=== PATIENT | female | born 1955 | race Caucasian/White ===

== ENCOUNTER → 2018-09-21 14:10 | Outpatient (CLI) | payer BC | END | disposition home or self-care (01) | LOC: D.LABREF 14:10 | DX: M17.11 Unilateral primary osteoarthritis, right knee (principal); Z11.8 Encounter for screening for other infectious and parasitic diseases ==

== ENCOUNTER 2018-10-19 11:57 | Inpatient (IN) | payer BC ==
[~2018-10-19] VITALS: Ht 162.6 cm; Wt 117.9 kg
[2018-10-24] MEDS ORDERED: GLUCOPHAGE1000 MG PO (12:02)
[2018-10-24] MEDS ORDERED: NEURONTIN800 MG PO (12:02)
[2018-10-24] MEDS ORDERED: LISINOPRIL5 MG PO (12:03)
[2018-10-24] MEDS ORDERED: NOVOLIN 70/30 110 ML SC ×2 (12:03)
[2018-10-24] MEDS ORDERED: LIPITOR20 MG PO (12:04)
[2018-10-24] MEDS ORDERED: ROBAXIN500 MG PO (12:04)
[2018-10-24] MEDS ORDERED: ALDACTONE25 MG PO (12:05)
[2018-10-24] MEDS ORDERED: FUROSEMIDE40 MG PO (12:05)
[2018-10-24] MEDS ORDERED: NOVOLOG100 UNIT/1 SC (12:06)
[2018-10-24 13:03] LABS: BASOPHILS 0.3 % (0-2); EOSINOPHILS 2.3 % (0-7); HEMATOCRIT 38.3 % (36.0-48.0); HEMOGLOBIN 12.4 g/dL (12-16); IMMATURE GRANULOCYTES 0.6 % (0-5); LYMPHOCYTES 40.5 % (15-50); MCH 28.7 pg (26.0-34.0); MCHC 32.4 g/dL (31.0-37.0); MCV 88.7 fL (80.0-100.0); MEAN PLATELET VOLUME 10.3 fL (7.4-10.4); MONOCYTES 3.8 % (2-11); NEUTROPHILS 52.5 % (40-80); PLATELET COUNT 293 10x3/uL (130-400); RBC 4.32 10x6/uL (4.00-5.40); RDW 13.5 % (11.5-14.5); WBC 14.9 10x3/uL (4.8-10.8)
[2018-10-24 13:07] LABS: APPEARANCE CLEAR (CLEAR); BILIRUBIN NEGATIVE (NEGATIVE); COLOR YELLOW (YELLOW); GLUCOSE 1000 mg/dL (NEGATIVE); KETONE NEGATIVE (NEGATIVE); NITRITE NEGATIVE (NEGATIVE); PROTEIN NEGATIVE (NEGATIVE); SPECIFIC GRAVITY 1.015 (1.005-1.020); UROBILINOGEN NORMAL (NORMAL)
[2018-10-24 13:10] LABS: ANION GAP 12.1 mmol/L (8-16); POTASSIUM - SERUM 4.1 mmol/L (3.5-5.1)
[2018-10-24 13:12] LABS: INR 0.95 (0.85-1.17); PROTIME 12.2 SECONDS (11.6-15.0)
[2018-10-24 16:07] LABS: EOSINOPHILS 1 % (0-7); LYMPHOCYTES 25 % (15-50); MONOCYTES 6 % (2-11); NEUTROPHILS 59 % (40-80)
[2018-10-24 16:09] LABS: HYPER SEGMENTED NEUTROPHILS OCC; PLATELET ESTIMATE NORMAL; SMUDGE CELLS 1+
[2018-10-24 16:10] LABS: HYPOCHROMASIA 2+
[2018-10-29 09:48] VITALS: BMI 45.6
--- NOTE | 2018-10-29 15:56 | OP ---
PATIENT NAME: EVGENY AMEZCUA MEDICAL RECORD: [id number] :59 LOCATION:D.MS Baker2212 ADMISSION DATE:10/29/18 SURGEON: SUE GARZON MD DATE OF OPERATION: 10/29/2018 PREOPERATIVE DIAGNOSIS: Degenerative arthritis of the right knee. POSTOPERATIVE DIAGNOSIS: Degenerative arthritis of the right knee. PROCEDURE: Right total knee arthroplasty. SURGEON: Sue Garzon MD SENIOR INFORMATION SECURITY ARCHITECT: MARKO Hills INTRAOPERATIVE COMPLICATIONS: None. SUMMARY OF PATHOLOGIC FINDINGS: The patient had severe osteoarthritis tricompartmentally. IMPLANTS USED: [place] Triathlon total knee arthroplasty system, press fit size #5, distal femur size 5, tibial component size #5 CS, 11-mm tibial bearing, and a size 31 x 9 mm patellar resurface - press fit. OPERATIVE SUMMARY IN DETAIL: After obtaining the appropriate preoperative orthopedic surgery consent as well as anesthetic consultation, evaluation, and clearance, the patient was brought to the operating room and placed on the operating table in the supine position. After adequate general laryngeal mask airway was administered, a tourniquet was placed about the proximal aspect of the right lower extremity. The right lower extremity was then prepped and draped in a routine sterile fashion. The leg was elevated, exsanguinated, and the tourniquet was inflated to 350 mmHg. Routine midline incision was taken down for paramedian arthrotomy. Patella was everted and distal femur was exposed. Soft tissue excision was done in usual fashion. An intramedullary guide hole was created for distal intramedullary guided cuts. Distal femur was cut. Then, the entire proximal tibia was exposed. Further meniscal excision was then followed by creation of an intramedullary guide hole for intramedullary guided cuts of the tibia. The tibia was cut and measurements were taken. Distal femoral chamfer cuts were made and osteophytes were removed. Trials corresponding to the above-mentioned numbers were put into place, taken through range of motion, and found to be stable in all planes. Final distal femoral and proximal tibial preparations were followed by excision of the arthritic surface of the patella. The patella was then prepared for final press fit patellar resurfacing. All debris was then irrigated using pulsatile lavage senior technical writer. Bone ends were then exposed and dried. Final components were then put into place in a press fit method. Having completed this, the knee was taken through range of motion. Slight lateral patellar subluxation led to a lateral release. Lastly, a gram of vancomycin, a gram of tobramycin, and a gram of TXA were placed into the knee. Paramedian arthrotomy was then closed by Maurilio Emerson using #2 Ethibond. This was then followed by #1 Vicryl, 2-0 Vicryl, and skin verna; all done by Maurilio Emerson. Sterile dressings were applied. Tourniquet was deflated. The patient was awakened and taken to the recovery room in stable condition. All final needle and sponge counts were correct. TRANSINT:[id number] Voice Confirmation ID: [id number] DOCUMENT ID: [id number] OPERATIVE REPORT [id number] EVGENY AMEZCUA MD, SUE REEDER at 1556 CC: [id number] DICTATION DATE: 10/29/18 1431 TAX ADJUSTER: 10/29/18 1552 ADM IN [place] [id number] [place] [id number]
[2018-10-29 16:25] VITALS: BP 100/65; BMI 44.7
--- NOTE | 2018-10-29 16:36 | NUR ---
PT ADMITTED TO RM 2212 FROM RECOVERY. ALERT AND ORIENTED. NO ACUTE DISTRESS NOTED. RATES PAIN 4/10 AT THIS TIME TO RIGHT KNEE. DRESSING TO RIGHT KNEE C/D/I, WITH AYLIN BANDAGE INTACT. IV TO LEFT FOREARM WITH NS @ 100 ML/HR INFUSING VIA PUMP. SITE WITHOUT REDNESS OR EDEMA. ORIENTED TO CL AND BED CONTROLS. DENIES FURTHER NEEDS AT THIS TIME. CL WITHIN REACH. ENCOURAGED TO CALL WITH NEEDS. WILL CONTINUE TO MONITOR.
[2018-10-29 20:00] VITALS: BP 95/54
--- NOTE | 2018-10-29 20:00 | NUR ---
ALERT RESTING IN BED CPM IN USE TO R LEG REPORTS STARTING TO FEEL PAIN AGAIN REQUESTING PAIN MEDS SOON DUE, REPORTS STILL FEELING NUMBNESS TO FOOT AND LOWER LEG CALL LIGHT IN REACH
--- NOTE | 2018-10-29 21:13 | NUR ---
DILAUDID ADVERTISING PRODUCTION MANAGER STARTED ORDERED FOR PAIN CONTROL
[2018-10-30 00:12] VITALS: BP 101/50
[2018-10-30 04:00] VITALS: BP 103/59
[2018-10-30 04:41] LABS: HEMATOCRIT 31.7 % (36.0-48.0); MCH 27.9 pg (26.0-34.0); MCHC 31.5 g/dL (31.0-37.0); MCV 88.3 fL (80.0-100.0); MEAN PLATELET VOLUME 9.9 fL (7.4-10.4); RBC 3.59 10x6/uL (4.00-5.40); RDW 13.8 % (11.5-14.5); WBC 12.5 10x3/uL (4.8-10.8)
--- NOTE | 2018-10-30 07:15 | NUR ---
PT LYING IN BED WITH FAMILY AT BEDSIDE. NO ACUTE DISTRESS NOTED AT THIS TIME. REPORTS PAIN 4/10, WATER CHASER INTACT. IV TO LEFT FOREARM WITH 1/2 NS @ 100ML/HR INFUSING VIA PUMP. SITE WITHOUT REDNESS OR EDEMA. DRESSING C/D/I TO RIGHT KNEE. CPM IN PLACE AND OPERATING. PT DENIES FURTHER NEEDS AT THIS TIME. CL WITHIN REACH. ENCOURAGED TO CALL WITH NEEDS. CONTINUE POC
--- NOTE | 2018-10-30 09:10 | NUR ---
PHYSICAL THERAPY ASSISTING PT TO BEDSIDE CHAIR. PT CANDIDO WELL. NO DISTRESS NOTED. CL WITHIN REACH. WILL CONTINUE TO MONITOR.
[2018-10-30 09:15] VITALS: BP 115/67
[2018-10-30 10:14] VITALS: Ht 162.6 cm; Wt 117.9 kg
--- NOTE | 2018-10-30 11:30 | NUR ---
PT REMAINS UP IN CHAIR AT BEDSIDE, NO ACUTE DISTRESS NOTED. DENIES FURTHER NEEDS AT THIS TIME. CL WITHIN REACH. WILL CONTINUE TO MONITOR.
--- NOTE | 2018-10-30 13:15 | NUR ---
PHYSICAL THERAPY PRESENT TO ASSIST PT BACK TO BED. PT CANDIDO WELL. WILL CONTINUE TO MONITOR.
[2018-10-30 20:00] VITALS: BP 130/64
--- NOTE | 2018-10-30 20:00 | NUR ---
PT REMOVED FROM CPM PER PT REQUEST. C/O SEVERE PAIN TO RIGHT KNEE. DRESSING IS CLEAN/DRY/INTACT. DISTAL PULSES PALPABLE. PT REPORTED PUPPY TRAINER IS NOT CONTROLING PAIN. SUGGESTED PO PAIN CONTROL. PT AGREED. PUPPY TRAINER REMOVED, PT SALINE-LOCKED. ICE PACK APPLIED TO RIGHT KNEE. FSBS 223. TEMPERATURE IS 100.5F. 1 LAYER OF BLANKET SHE, COOL RAG APPLIED TO FOREHEAD, AND PT ENCOURAGED TO INCREASE FLUID INTAKE. ICEWATER BROUGHT PER REQUEST. WILL CONTINUE TO MONITOR.
--- NOTE | 2018-10-30 21:20 | NUR ---
TEMP IS 100.2 AXILLARY. CONTINUED COOLING AND FLUID INTAKE.
--- NOTE | 2018-10-30 22:30 | NUR ---
TEMP IS 100.0 AXILLARY, WILL CONTINUE TO MONITOR.
--- NOTE | 2018-10-30 23:37 | NUR ---
PT CHANGED INTO FLANNEL NIGHT GOWN, RE-COVERED SELF IN BLANKETS, ASLEEP, BUT EASILY AROUSED BY GENTLE TOUCH OF SHOULDER. TEMP IS 100.1. REMOVE COVER, COOL RAG, INCENT. SPIROMETER GIVEN AND INSTRUCTED ON USE. WILL CONTINUE TO MONITOR.
[2018-10-31] VITALS: BP 143/77
--- NOTE | 2018-10-31 01:00 | NUR ---
PT LYING IN BED RESTING, NO SIGNS OF DISTRESS. AGREE W/ CONCESSION ATTENDANT ASSESSMENT. CL IN REACH, WILL CONTINUE TO MONITOR
[2018-10-31 04:00] VITALS: BP 134/67
[2018-10-31 04:57] LABS: HEMATOCRIT 30.1 % (36.0-48.0); HEMOGLOBIN 9.5 g/dL (12-16); MCHC 31.6 g/dL (31.0-37.0); MCV 88.8 fL (80.0-100.0); MEAN PLATELET VOLUME 10.2 fL (7.4-10.4); RBC 3.39 10x6/uL (4.00-5.40); RDW 13.9 % (11.5-14.5); WBC 13.8 10x3/uL (4.8-10.8)
[2018-10-31 10:25] VITALS: BP 129/59
--- NOTE | 2018-10-31 12:15 | MORECARE ---
CASE MANAGEMENT DISCHARGE SUMMARY PATIENT: EVGENY AMEZCUA UNIT: [id number] ADM DATE: 10/29/18 AGE: 63 : 59 SEX: F ROOM/BED: D.2212 AUTHOR: JESSICA,DOC PHYSICIAN: REFERRING PHYSICIAN: SUE GARZON MD DATE OF SERVICE: 10/31/18 Discharge Plan Patient Name: EVGENY AMEZCUA Facility: [facility]:[place] : 1955 Planned Disposition: Home with Home Health Anticipated Discharge Date: Discharge Date: Expected LOS: Initial Reviewer: [email or web address] Initial Review Date: 10/29/2018 Generated: 10/31/18 1:15 pm Comments DCP- Discharge Planning Updated by [email or web address]: Pat Barajas on 10/31/18 11:[address] Patient Name: EVGENY AMEZCUA Admission Status: Elective Accout number: [id number] Admission Date: 10-29-2018 : 1955 Admission Diagnosis: Attending: SUE GARZON Current LOS: 2 Anticipated DC Date: Planned Disposition: Home with Home Health Primary Insurance: [employer] Discharge Planning Comments: CM met with patient to assess discharge planning needs. Patient stated that she lives independent at home where she plans to return at discharge. Her sister will be the one to take her home and will stay with her to help out for a little bit. After her sister leaves, the patient stated that she has friends lined up to come help. She has a cpm, walker and BSC. She does not have transportation to OP PT so she is requesting home health. LISBETH with (1) [facility] (2) [facility]. I called Chayo at [facility] and sent facesheet to see if they could accept patient. CM will continue to follow and assist with DC planning needs Auto Hauler: Pat Barajas DCPIA - Discharge Planning Initial Assessment Updated by [email or web address]: Pat Barajas on 10/31/18 12:11 pm * Is the patient Alert and Oriented? Yes * How many steps to enter\exit or inside your home? * PCP ALISA * Pharmacy [facility] * Preadmission Environment Home with Family * ADLs Independent * Equipment Elevated Toliet Seat Rolling Walker * Other Equipment CPM * List name and contact numbers for known caregivers / representatives who currently or will assist patient after discharge: BERNARDINO AMEZCUA [phone] * Verbal permission to speak to the caregivers and representatives has been obtained from the patient. Yes * Community resources currently utilized None * Additional services required to return to the preadmission environment? Yes * Can the patient safely return to the preadmission environment? Yes * Has this patient been hospitalized within the prior 30 days at any hospital? No External Providers External Provider: [employer] Next Contact Date: Service Request Date: Service Type: Resolution: Reviewer: Comments: Patient Name: EVGENY AMEZCUA Page [id number] at 1215 All edits/amendments must be made on the electronic document DICTATION DATE: 10/31/18 1215 TRACK MAINTAINER: CHRISSIE 10/31/18 1215 RPT#: [id number] DC DATE: STATUS: ADM IN [facility] [address] [place] [address] END OF REPORT
[2018-10-31 16:40] VITALS: BP 104/53
--- NOTE | 2018-10-31 19:00 | NUR ---
PT IN BED IN LOW FOWLERS POSITION. ALERT AND ORIENTED X4. VITAL SIGNS STABLE AND AFEBRILE. NO VISUAL CUES OF DISTRESS NOTED. DENIES ANY OTHER NEEDS AT THIS TIME. BED LOW, SIDE RAILS UP X2. CALL LIGHT IN REACH. WILL CONTINUE TO MONITOR.
[2018-10-31 21:07] VITALS: BP 93/43
[2018-11-01 04:39] VITALS: BP 106/67
[2018-11-01] MEDS ORDERED: ELIQUIS2.5 MG PO (07:50)
[2018-11-01] MEDS ORDERED: PERCOCET 10-321 EAC1 PO (07:50)
--- NOTE | 2018-11-01 09:24 | MORECARE ---
CASE MANAGEMENT DISCHARGE SUMMARY PATIENT: EVGENY AMEZCUA UNIT: [id number] ADM DATE: 10/29/18 AGE: 63 : 59 SEX: F ROOM/BED: D.2212 AUTHOR: JESSICA,DOC PHYSICIAN: REFERRING PHYSICIAN: SUE GARZON MD DATE OF SERVICE: 11/01/18 Discharge Plan Patient Name: EVGENY AMEZCUA Facility: [facility]:[place] : 1955 Planned Disposition: Home with Home Health Anticipated Discharge Date: Discharge Date: Expected LOS: Initial Reviewer: [email or web address] Initial Review Date: 10/29/2018 Generated: 11/01/18 10:24 am Comments DCP- Discharge Planning Updated by [email or web address]: Pat Barajas on 11/01/18 8:[address] Patient will be discharging home today. Chayo with [facility] stated that they would accept patient and start of care will begin tomorrow. Patient has all DME needed. CM to follow as needed DCP- Discharge Planning Updated by [id number]: Pat Barajas on 10/31/18 11:[address] Patient Name: EVGENY AMEZCUA Admission Status: Elective Accout number: [id number] Admission Date: 10-29-2018 : 1955 Admission Diagnosis: Attending: SUE GARZON Current LOS: 2 Anticipated DC Date: Planned Disposition: Home with Home Health Primary Insurance: [employer] [facility] [place]charge Planning Comments: CM met with patient to assess discharge planning needs. Patient stated that she lives independent at home where she plans to return at discharge. Her sister will be the one to take her home and will stay with her to help out for a little bit. After her sister leaves, the patient stated that she has friends lined up to come help. She has a cpm, walker and BSC. She does not have transportation to OP PT so she is requesting home health. LISBETH with (1) [facility] (2) [facility]. I called Chayo at [facility] and sent facesheet to see if they could accept patient. CM will continue to follow and assist with DC planning needs Rat Poisoner: Pat Barajas DCPIA - Discharge Planning Initial Assessment Updated by [email or web address]: Pat Barajas on 10/31/18 12:11 pm * Is the patient Alert and Oriented? Yes * How many steps to enter\exit or inside your home? * PCP ALISA * Pharmacy [facility] [place] * Preadmission Environment Home with Family * ADLs Independent * Equipment Elevated Toliet Seat Rolling Walker * Other Equipment CPM * List name and contact numbers for known caregivers / representatives who currently or will assist patient after discharge: BERNARDINO AMEZCUA [phone] * Verbal permission to speak to the caregivers and representatives has been obtained from the patient. Yes * Community resources currently utilized None * Additional services required to return to the preadmission environment? Yes * Can the patient safely return to the preadmission environment? Yes * Has this patient been hospitalized within the prior 30 days at any hospital? No Last DP export: 10/31/18 11:15 a Patient Name: EVGENY AMEZCUA Page [id number] at 0924 All edits/amendments must be made on the electronic document DICTATION DATE: 11/01/18922 SHELTER SUPERVISOR: CHRISSIE 11/01/18922 RPT#: [id number] DC DATE: STATUS: ADM IN [facility] [address] [place] [address] END OF REPORT
--- NOTE | 2018-11-02 14:49 | MORECARE ---
CASE MANAGEMENT DISCHARGE SUMMARY PATIENT: EVGENY AMEZCUA UNIT: [id number] ADM DATE: 10/29/18 AGE: 63 : 59 SEX: F ROOM/BED: D.2212 AUTHOR: JESSICA,DOC PHYSICIAN: REFERRING PHYSICIAN: SUE GARZON MD DATE OF SERVICE: 11/02/18 Discharge Plan Patient Name: EVGENY AMEZCUA Facility: [facility]:[place] : 1955 Planned Disposition: Home with Home Health Anticipated Discharge Date: Discharge Date: 11/01/2018 Expected LOS: 0 Initial Reviewer: [email or web address] Initial Review Date: 10/29/2018 Generated: 11/02/18 3:49 pm Comments DCP- Discharge Planning Updated by [email or web address]: Pat Barajas on 11/01/18 8:[address] Patient will be discharging home today. Chayo with [facility] stated that they would accept patient and start of care will begin tomorrow. Patient has all DME needed. CM to follow as needed DCP- Discharge Planning Updated by [id number]: Pat Barajas on 10/31/18 11:[address] Patient Name: EVGENY AMEZCUA Admission Status: Elective Accout number: [id number] Admission Date: 10-29-2018 : 1955 Admission Diagnosis: Attending: SUE GARZON Current LOS: 2 Anticipated DC Date: Planned Disposition: Home with Home Health Primary Insurance: I Had Cancer [facility] Discharge Planning Comments: CM met with patient to assess discharge planning needs. Patient stated that she lives independent at home where she plans to return at discharge. Her sister will be the one to take her home and will stay with her to help out for a little bit. After her sister leaves, the patient stated that she has friends lined up to come help. She has a cpm, walker and BSC. She does not have transportation to OP PT so she is requesting home health. LISBETH with (1) [facility] (2) [facility]. I called Chayo at [facility] and sent facesheet to see if they could accept patient. CM will continue to follow and assist with DC planning needs Legal Aid: Pat Barajas DCPIA - Discharge Planning Initial Assessment Updated by [email or web address]: Pat Barajas on 10/31/18 12:11 pm * Is the patient Alert and Oriented? Yes * How many steps to enter\exit or inside your home? * PCP ALISA * Pharmacy [facility] [place] * Preadmission Environment Home with Family * ADLs Independent * Equipment Elevated Toliet Seat Rolling Walker * Other Equipment CPM * List name and contact numbers for known caregivers / representatives who currently or will assist patient after discharge: BERNARDINO AMEZCUA [phone] * Verbal permission to speak to the caregivers and representatives has been obtained from the patient. Yes * Community resources currently utilized None * Additional services required to return to the preadmission environment? Yes * Can the patient safely return to the preadmission environment? Yes * Has this patient been hospitalized within the prior 30 days at any hospital? No Last DP export: 11/01/18 8:24 a Patient Name: EVGENY AMEZCUA Page [id number] at 1449 All edits/amendments must be made on the electronic document DICTATION DATE: 11/02/188 FOREIGN BANKNOTE TELLER: CHRISSIE 11/02/188 RPT#: [id number] DC DATE:11/01/18 STATUS: DIS IN [facility] [address] [place] [address] END OF REPORT
== END 2018-11-01 11:37 | disposition home health service (06) | DRG 470 ==
LOC: D.MS 10-29 09:25 → D.SDCHOLD 10-29 09:25 → D.MS 10-29 15:25
PROVIDERS: ADMIT Orthopaedic Surgery
PROC: 0SRC0JZ Replacement of Right Knee Joint with Synthetic Substitute, Open Approach (ICD-10-PCS; principal; 2018-10-29 12:00)
DX: M17.11 Unilateral primary osteoarthritis, right knee (principal); E11.9 Type 2 diabetes mellitus without complications; I10 Essential (primary) hypertension

== ENCOUNTER → 2018-10-24 17:17 | Outpatient (CLI) | payer BC ==
[~2018-10-24 17:17] MED LIST: ALDACTONE25 MG PO; ELIQUIS2.5 MG PO; FUROSEMIDE40 MG PO; GLUCOPHAGE1000 MG PO; LIPITOR20 MG PO; LISINOPRIL5 MG PO; NEURONTIN800 MG PO; NOVOLIN 70/30 110 ML SC; NOVOLOG100 UNIT/1 SC; PERCOCET 10-321 EAC1 PO; ROBAXIN500 MG PO
== END | disposition home or self-care (01) ==
LOC: D.LABREF 17:17
DX: Z00.00 Encounter for general adult medical examination without abnormal findings (principal)

== ENCOUNTER 2018-11-23 10:26 | Inpatient (IN) | payer MEDICAID ==
[~2018-11-23] VITALS: Ht 162.6 cm; Wt 114.5 kg
--- NOTE | ~2018-11-23 | OP ---
PATIENT NAME: EVGENY AMEZCUA MEDICAL RECORD: [id number] :[birth year] LOCATION:D.MS Baker2210 ADMISSION DATE:04/22/19 SURGEON: SUE GARZON MD DATE OF OPERATION: 04/22/2019 PREOPERATIVE DIAGNOSIS: Degenerative arthritis of left knee, severe. POSTOPERATIVE DIAGNOSIS: Degenerative arthritis of left knee, severe. PROCEDURE: Left total knee arthroplasty. SURGEON: Sue Garzon MD BREWERY PUMPER: MARKO Hills INTRAOPERATIVE COMPLICATIONS: None. SUMMARY OF PATHOLOGIC FINDINGS: The patient was indeed found to have severe degenerative arthritis with a substantial varus deformity. IMPLANTS USED: [place] Triathlon total knee arthroplasty component, size 3 tibial baseplate, 4 distal femoral component, size 3 x 16 tibial bearing insert - CS X3, and a 9 x 31 mm symmetric patella. Note, all are press fit. OPERATIVE SUMMARY IN DETAIL: After obtaining the appropriate preoperative orthopedic surgery consent as well as anesthetic consultation, evaluation, and clearance, the patient was brought to the operating room and placed on the operating table in supine position. After adequate general laryngeal mask was administered, tourniquet was placed about the proximal aspect of the left lower extremity. The left lower extremity was then prepped and draped in routine sterile fashion. The leg was elevated, exsanguinated, and the tourniquet was inflated to 350 mmHg. At this point, the appropriate preoperative time-out was taken including patient identifiers as well as medications and allergies. It was agreed upon by all in the operative suite. Midline incision was then made over the left knee and taken down for paramedian arthrotomy. Patella was everted. Soft tissue excision was done in the usual fashion. Distal femoral intramedullary guide hole was created. Distal femoral cut was made. This was followed by complete exposure of the proximal tibia with further soft tissue resection followed by creating an intramedullary guide hole for proximal tibial cutting. Proximal tibia was cut. Measurements were taken. Distal chamfer cuts were made on the distal femur. Implants corresponding to the above-mentioned implants were put into place, taken through range of motion, and found to be stable in all planes. Final distal femoral preparations and proximal tibial preparations were then followed by excising the arthritic aspect of the patella. Patella was prepared for final press fit. Wound was irrigated to remove all debris. Final components were press fit into place. Knee was taken through range of motion and found to be stable in all planes. At this point, a gram of vancomycin and a gram of tobramycin were placed in the knee. The arthrotomy was then closed with #2 Ethibond by Maurilio Emerson followed by #1 Vicryl, 2-0 Vicryl, and skin verna. Sterile dressings were applied. The patient was awakened and taken to recovery room in stable condition. All final needle and sponge counts were correct. TRANSINT:[id number] Voice Confirmation ID: [id number] DOCUMENT ID: [id number] OPERATIVE REPORT [id number] EVGENY AMEZCUA MD, SUE REEDER CC: [id number] DICTATION DATE: 04/24/19 1459 GAS STATION CLERK: 04/24/19 1711 ADM IN [place] [id number] [place] [address]
[2019-04-17] MEDS ORDERED: ELAVIL25 MG (12:43)
[2019-04-17] MEDS ORDERED: ELAVIL25 MG PO (12:43)
[2019-04-17] MEDS ORDERED: GLUCOPHAGE1000 MG PO (12:46)
[2019-04-17] MEDS ORDERED: COREG6.25 MG (12:46)
[2019-04-17] MEDS ORDERED: NOVOLIN 70/30 110 ML ×2 (12:48→12:50)
[2019-04-17] MEDS ORDERED: NOVOLIN 70/30 110 ML SQ (12:52)
[2019-04-17 13:40] LABS: BASOPHILS 0.2 % (0-2); EOSINOPHILS 1.5 % (0-7); HEMATOCRIT 35.5 % (36.0-48.0); HEMOGLOBIN 11.5 g/dL (12-16); IMMATURE GRANULOCYTES 0.5 % (0-5); LYMPHOCYTES 33.3 % (15-50); MCH 28.3 pg (26.0-34.0); MCHC 32.4 g/dL (31.0-37.0); MCV 87.4 fL (80.0-100.0); MONOCYTES 4.4 % (2-11); NEUTROPHILS 60.1 % (40-80); RBC 4.06 10x6/uL (4.00-5.40); RDW 14.4 % (11.5-14.5); WBC 12.9 10x3/uL (4.8-10.8)
[2019-04-17 13:44] LABS: PLATELET COUNT 299 10x3/uL (130-400)
[2019-04-17 13:51] LABS: ANION GAP 13.1 mmol/L (8-16); CALCIUM 9.1 mg/dL (8.5-10.1); CARBON DIOXIDE 26.7 mmol/L (21.0-32.0); CREATININE - SERUM 0.9 mg/dL (0.6-1.3); POTASSIUM - SERUM 3.8 mmol/L (3.5-5.1)
[2019-04-17 13:54] LABS: APTT 32.2 SECONDS (22.8-39.4)
[2019-04-17 13:58] LABS: INR 1.04 (0.85-1.17); PROTIME 13.1 SECONDS (11.6-15.0)
[2019-04-17 15:55] LABS: APPEARANCE CLEAR (CLEAR); BILIRUBIN NEGATIVE (NEGATIVE); COLOR YELLOW (YELLOW); GLUCOSE 1000 mg/dL (NEGATIVE); KETONE NEGATIVE (NEGATIVE); NITRITE NEGATIVE (NEGATIVE); PROTEIN NEGATIVE (NEGATIVE); SPECIFIC GRAVITY 1.025 (1.005-1.020); UROBILINOGEN NORMAL (NORMAL)
[2019-04-22] VITALS (7 sets, daily range): BP systolic 102–133; BP diastolic 53–87; Ht 162.6 cm; Wt 114.5 kg
--- NOTE | 2019-04-22 13:16 | NUR ---
PLASMA BLADE USED PAD IS ON RIGHT FLANK LOT# [id number] DATE:10/03/20
--- NOTE | 2019-04-22 16:13 | NUR ---
PATIENT RECIEVED FROM PACU FOLLOWING LEFT TOTAL KNEE REPLACEMENT. DRESSING C/D/I. PATIENT REPORTS PAIN OF 8 TO KNEE WITH PERCOCET GIVEN. ORIENTED PATIENT TO ROOM WITH CALL LIGHT IN REACH
--- NOTE | 2019-04-22 19:35 | NUR ---
LYING IN BED TALKING TO FAMILY. CPM HAS NOT BEEN ON OFFGOING STAFF REPORTED THAT PT DIDNT WANT IT ON WHILE FAMILY WAS VISITING. INFORMED PT THAT CPM WOULD BE PLACED ON HER SHORTLY. DENIES PAIN. STATES BLOCK IS STILL WORKING. ALERT AND ORIENTED BUT CONFUSED AT TIMES POSSIBLY FROM ANESTHESIA. IRRITABLE WITH STAFF. DRSG NOTED TO LT KNEE WITH AYLIN WRAP. 1+ EDEMA NOTED TO LLE. 1/2 NS @ 100 ML/HR INFUSING IN LT HAND WITHOUT DIFF. BED ALARM IN USE. SR ELEVATED X2. CL IN REACH.
--- NOTE | 2019-04-22 21:50 | NUR ---
MEDICATED WITH [facility]CO FOR C/O PAIN IN KNEE RATING 8. WANTS STAFF TO TAKE HER OFF THE CPM. STATES "I'M ONLY ON IT AT HOME FOR AN HOUR AND A HALF OR 2." ATTEMPTED TO EXPLAIN TO PT THAT THE DR HAS ORDERED IT TO BE ON FOR 3 HOURS. SHE STATES,"YOU ALL HAVE NO SYMPATHY FOR ANYONE." INFORMED PT THAT STAFF COULD TAKE HER OFF BUT IT WOULD BE CHARTED THAT SHE HAD REFUSED TO WEAR IT THE PRESCRIBED TIME. SHE STATES, "JUST LEAVE IT ON THEN" STAFF STATED TO PT THAT SHE SEEMED AGITATED ABOUT SOMETHING AND SHE STATES, "YOU ARE RUDE AND HAVE BEEN ALL NIGHT." PT SISTER LOOKED AT STAFF AND ROLLED HER EYES.
[2019-04-23] VITALS: BP 127/83
--- NOTE | 2019-04-23 01:31 | NUR ---
MEDICATED WITH PERCOCET FOR C/O LT KNEE PAIN. CL IN REACH. SISTER AT BEDSIDE.
[2019-04-23 04:00] VITALS: BP 106/65
[2019-04-23 06:48] LABS: HEMATOCRIT 31.5 % (36.0-48.0); HEMOGLOBIN 9.8 g/dL (12-16); MCH 27.5 pg (26.0-34.0); MCHC 31.1 g/dL (31.0-37.0); MCV 88.5 fL (80.0-100.0); MEAN PLATELET VOLUME 9.7 fL (7.4-10.4); RBC 3.56 10x6/uL (4.00-5.40); RDW 14.5 % (11.5-14.5); WBC 15.3 10x3/uL (4.8-10.8)
[2019-04-23 08:24] VITALS: BP 140/69
--- NOTE | 2019-04-23 10:20 | NUR ---
PT ALERT X 4. BREATH SOUNDS CLEAR BILAT. IV TO LEFT HAND, PATENT, DRESSING CDI. PT REPORTING PAIN OF 10/10, FINANCIAL SUPERVISOR INITIATED, WILL MONITOR. DRESSING TO LEFT KNEE CDI. BED LOW, CALL LIGHT IN REACH, NO OTHER NEEDS AT THIS TIME.
[2019-04-23 11:54] VITALS: BP 111/55
--- NOTE | 2019-04-23 14:54 | NUR ---
PT RESTING COMFORTABLY IN BED. NO OTHER NEEDS AT THIS TIME.
[2019-04-23 15:45] VITALS: BP 95/67
--- NOTE | 2019-04-23 19:30 | NUR ---
LYING IN BED ASLEEP. AWAKENED FOR ASSESSMENT. EDITING INTERNSHIP DILAUDID IN USE. ENCOURAGED TO COUGH AND DEEP BREATHE AND USE I.S. DSRG NOTED TO LT KNEE WITH AYLIN. SCD TO RLE. CPM IN USE. O2 @ 2L/NC. 1/2 NS @ 100 MLHR INFUSING IN LT HAND WITHOUT DIFF. BED ALARM IN USE FOR PT SAFETY. SR ELEVATED X2. CL IN REACH.
[2019-04-23 20:00] VITALS: BP 102/54
--- NOTE | 2019-04-23 20:39 | NUR ---
HELD NEURONTIN, ROBAXIN AND ELAVIL DUE TO DECREASED B/P, SHALLOW RESP AND DROWSINESS.
--- NOTE | 2019-04-23 22:40 | NUR ---
NOTIFIED DR REN OF ELEVATED TEMP. NEW ORDER NOTED FOR TYLENOL AND FOR PT TO USE I.S. 10X PER HOUR.
--- NOTE | 2019-04-23 23:30 | NUR ---
ASSISTED WITH BEDBATH AT THIS TIME.
[2019-04-24] VITALS: BP 113/49
--- NOTE | 2019-04-24 02:57 | NUR ---
HAS SLEPT WELL SO FAR THIS SHIFT. NO DISTRESS. BED ALARM IN USE. CL IN REACH.
[2019-04-24 05:08] LABS: HEMATOCRIT 25.9 % (36.0-48.0); HEMOGLOBIN 8.3 g/dL (12-16); MCH 27.9 pg (26.0-34.0); MCV 86.9 fL (80.0-100.0); MEAN PLATELET VOLUME 9.8 fL (7.4-10.4); RBC 2.98 10x6/uL (4.00-5.40); RDW 14.5 % (11.5-14.5)
[2019-04-24 05:45] LABS: WBC 19.5 10x3/uL (4.8-10.8)
--- NOTE | 2019-04-24 08:08 | NUR ---
PT RESTING IN BED. ENCOURAGE TO COUGH/DEEP BREATH AND USE I.S. NO S/S OF ACUTE DISTRESS. BROUGHT ICE WATER. CL IN PLACE.
[2019-04-24 09:20] VITALS: BP 109/55
--- NOTE | 2019-04-24 10:35 | MORECARE ---
CASE MANAGEMENT DISCHARGE SUMMARY PATIENT: EVGENY AMEZCUA UNIT: [id number] ADM DATE: 04/22/19 AGE: 63 : 59 SEX: F ROOM/BED: D.2210 AUTHOR: CHRISTIAN LOPEZ PHYSICIAN: REFERRING PHYSICIAN: SUE GARZON MD DATE OF SERVICE: 04/24/19 Discharge Plan Patient Name: EVGENY AMEZCUA [facility] [facility] 1955 Planned Disposition: Inpatient Rehab Anticipated Discharge Date: Discharge Date: Expected LOS: Initial Reviewer: [email or web address] Initial Review Date: 04/22/2019 Generated: 04/24/19 11:34 am Comments DCP- Discharge Planning Updated by [email or web address]: Pat Barajas on 04/24/19 9:[address] Patient is out of OP PT visits along with home health physical therapy visits. She is only allowed 30 per year. I did call and verify this with Dora Starks [employer]. Dora suggest either Inpatient rehab or Skilled, with all her co-morbidities inpatient rehab would be a great option. I discussed this with the patient and her sister and she would like to go to inpatient rehab. I sent the referral to go [facility] and called Kristin. MATSON to follow and assist with DC plannning External Providers External Provider: [facility] Next Contact Date: Service Request Date: Service Type: Resolution: Reviewer: Comments: Patient Name: EVGENY AMEZCUA Page [phone] at 1035 All edits/amendments must be made on the electronic document DICTATION DATE: 04/24/19 1034 MAINTENANCE SHOP LABORER: CHRISSIE 04/24/19 1034 RPT#: [id number] DC DATE: STATUS: ADM IN [facility] [address] [place] [address] END OF REPORT
[2019-04-24 12:24] VITALS: BP 106/57
--- NOTE | 2019-04-24 14:22 | MORECARE ---
CASE MANAGEMENT DISCHARGE SUMMARY PATIENT: EVGENY AMEZCUA UNIT: [id number] ADM DATE: 04/22/19 AGE: 63 : 59 SEX: F ROOM/BED: D.2210 AUTHOR: JESSICA,DOC PHYSICIAN: REFERRING PHYSICIAN: SUE GARZON MD DATE OF SERVICE: 04/24/19 Discharge Plan Patient Name: EVGENY AMEZCUA Facility: [facility]:[place] : 1955 Planned Disposition: Inpatient Rehab Anticipated Discharge Date: Discharge Date: Expected LOS: Initial Reviewer: [email or web address] Initial Review Date: 04/22/2019 Generated: 04/24/19 3:21 pm Comments DCP- Discharge Planning Updated by [email or web address]: Pat Fournierken on 04/24/19 9:[address] Patient is out of OP PT visits along with home health physical therapy visits. She is only allowed 30 per year. I did call and verify this with Dora Starks [facility]. Dora suggest either Inpatient rehab or Skilled, with all her co-morbidities inpatient rehab would be a great option. I discussed this with the patient and her sister and she would like to go to inpatient rehab. I sent the referral to [facility] and called Kristin. MATSON to follow and assist with DC plannning DCPIA - Discharge Planning Initial Assessment Updated by [email or web address]: Pat Fournierken on 04/24/19 2:20 pm * Is the patient Alert and Oriented? Yes * How many steps to enter\exit or inside your home? * PCP ALEX CUELLAR * Pharmacy [facility] * Preadmission Environment Home with Family * ADLs Independent * Equipment Bedside Commode Rolling Walker * Other Equipment CPM * List name and contact numbers for known caregivers / representatives who currently or will assist patient after discharge: MEHRDAD (SISTER) [phone] * Verbal permission to speak to the caregivers and representatives has been obtained from the patient. N/A * Community resources currently utilized None * Additional services required to return to the preadmission environment? Yes * Can the patient safely return to the preadmission environment? No * Has this patient been hospitalized within the prior 30 days at any hospital? No Last DP export: 04/24/19 9:35 am Patient Name: EVGENY AMEZCUA Page 48848 at 1422 All edits/amendments must be made on the electronic document DICTATION DATE: 04/24/191420 DISPATCHER CHIEF OIL: CHRISSIE 04/24/191420 RPT#: [id number] DC DATE: STATUS: ADM IN [facility] [address] [place] [address] END OF REPORT
--- NOTE | 2019-04-24 14:30 | MORECARE ---
CASE MANAGEMENT DISCHARGE SUMMARY PATIENT: EVGENY AMEZCUA UNIT: [id number] ADM DATE: 04/22/19 AGE: 63 : 59 SEX: F ROOM/BED: D.2210 AUTHOR: JESSICA,DOC PHYSICIAN: REFERRING PHYSICIAN: SUE GARZON MD DATE OF SERVICE: 04/24/19 Discharge Plan Patient Name: EVGENY AMEZCUA Facility: [facility]:[place] : 1955 Planned Disposition: Inpatient Rehab Anticipated Discharge Date: Discharge Date: Expected LOS: Initial Reviewer: [email or web address] Initial Review Date: 04/22/2019 Generated: 04/24/19 3:30 pm Comments DCP- Discharge Planning Updated by [email or web address]: Pat Barajas on 04/24/19 1:[address] Patient Name: EVGENY AMEZCUA Admission Status: Elective Accout number: [id number] Admission Date: 04-22-2019 : 1955 Admission Diagnosis: Attending: SUE GARZON Current LOS: 2 Anticipated DC Date: Planned Disposition: Inpatient Rehab Primary [place]: [place] [employer] Discharge Planning Comments: CM met with patient to complete initial dc planning assessment. CM educated patient on the CM role and verbal consent given by patient to complete assessment. Patient lives at home with her son and granddaughter where she is independent with her care. At discharge patient plans to go to [facility] inpatient rehab at and feels this is a safe discharge. Patient has a BSC, walker, and a CPM at home. Patient denied known discharge needs at this time. CM will continue to follow and will assist as needed with dc plans/needs. Blocking Machine Tender: Pat Barajas DCP- Discharge Planning Updated by [id number]: Pat Barajas on 04/24/19 9:[address] Patient is out of OP PT visits along with home health physical therapy visits. She is only allowed 30 per year. I did call and verify this with Dora Starks [facility]. Dora suggest either Inpatient rehab or Skilled, with all her co-morbidities inpatient rehab would be a great option. I discussed this with the patient and her sister and she would like to go to inpatient rehab. I sent the referral to [facility] and called Kristin. MATSON to follow and assist with DC plannning DCPIA - Discharge Planning Initial Assessment Updated by [email or web address]: Pat Barajas on 04/24/19 2:20 pm * Is the patient Alert and Oriented? Yes * How many steps to enter\exit or inside your home? * PCP ALEX CUELLAR * Pharmacy [facility] [place] * Preadmission Environment Home with Family * ADLs Independent * Equipment Bedside Commode Rolling Walker * Other Equipment CPM * List name and contact numbers for known caregivers / representatives who currently or will assist patient after discharge: MEHRDAD (SISTER) [phone] * Verbal permission to speak to the caregivers and representatives has been obtained from the patient. N/A * Community resources currently utilized None * Additional services required to return to the preadmission environment? Yes * Can the patient safely return to the preadmission environment? No * Has this patient been hospitalized within the prior 30 days at any hospital? No Last DP export: 04/24/19 1:22 pm Patient Name: EVGENY AMEZCUA Page 70601 at 1430 All edits/amendments must be made on the electronic document DICTATION DATE: 04/24/19 1430 GENETIC PHYSICIAN: CHRISSIE 04/24/19 1430 RPT#: [id number] DC DATE: STATUS: ADM IN [facility] [address] [place] [address] END OF REPORT
[2019-04-24 18:46] VITALS: BP 118/55
--- NOTE | 2019-04-24 20:06 | NUR ---
LATE ENTRY 1729. CAME INTO ROOM TO GIVE PT MEDICINE. PT UP IN CHAIR. ADMINISTERED MEDICATION. WHILE IN ROOM SISTER STANDING EATING PT TRAY. SISTER STATED, "PT IS NOT ACTING RIGHT. SHE SEEMS TO BE OUT OF IT. WENT TO [employer] AND GRABBED STAPLES AND TURNED OFF FINANCE INSURANCE MANAGER. PT CO PAIN TO KNEE "04/27" ADMINISTERED TORDOL FOR PAIN. SPOKE WITH SISTER OUT IN [place]. "SHE IS NOT ACTING RIGHT. SHE IS TALKING ABOUT MOTHER WHO HAS BEEN GONE FOR A WHILE. EXPLAINED TO SISTER IS COULD BE SEVERAL THINGS AND I WOULD CONTACT MD. CALLED DR REN ABOUT PT CHANGE IN MENTAL STATUS. TO FOR LEVAQUIN 500MG IV QD. STAT CHEST XRAY, UA/DIRECTOR OF DISTRICT OFFICE, STAT CT OF HEAD, CONSULT PRIMARY. CALLED INTO ROOM BY PATTERNMAKER APPRENTICE METAL, "PT WANTS TO GO TO BED AND IS UNABLE TO GET UP WITH ME AND HER RW." ENTERED ROOM. ASSISTED PT TO BED WITH YESENIA JOSUE.1914 DR REN CALLED BACK AND SAID PT NEEDS TRANS PADMINI TO A HOSPITAL WITH NEUROLOGY. CALLED LIANET BAKERPIN MAKER. OK TO TAKE PT TO ER TO SEE IF PT QUALIFIES FOR [place] SAVES. PT AAOX4. TALKING. NO S/S OF ACUTE DISTRESS. ASSITED PT TO ER WHERE STAFF TOOK OVE
--- NOTE | 2019-04-24 20:20 | NUR ---
ADDENDUM TO 1800. [phone]/55.93% O2 @ [facility].
== END 2019-04-24 21:11 | disposition short-term general hospital (02) | DRG 469 ==
LOC: D.MS 04-22 07:00 → D.SDCHOLD 04-22 07:00 → D.MS 04-22 14:31
PROVIDERS: ADMIT Orthopaedic Surgery; ATTEND Orthopaedic Surgery
PROC: 0SRD0J9 Replacement of Left Knee Joint with Synthetic Substitute, Cemented, Open Approach (ICD-10-PCS; principal; 2019-04-22 10:30)
DX: M17.12 Unilateral primary osteoarthritis, left knee (principal); I63.9 Cerebral infarction, unspecified; E11.9 Type 2 diabetes mellitus without complications; I10 Essential (primary) hypertension; J45.909 Unspecified asthma, uncomplicated

== ENCOUNTER → 2019-02-19 18:25 | Outpatient (CLI) | payer MEDICAID ==
[2019-01-24 14:08] VITALS: BMI 44.6
== END | disposition home or self-care (01) ==
LOC: D.LABREF 18:25
PROVIDERS: ATTEND Orthopaedic Surgery
DX: M17.12 Unilateral primary osteoarthritis, left knee (principal); Z11.8 Encounter for screening for other infectious and parasitic diseases

== ENCOUNTER 2019-04-24 19:47 | Emergency (ER) | payer MEDICAID ==
[~2019-04-24 19:47] MED LIST changes: +COREG6.25 MG; +ELAVIL25 MG; +ELAVIL25 MG PO; +NOVOLIN 70/30 110 ML; +NOVOLIN 70/30 110 ML SQ
[2019-04-24 19:49] VITALS: Ht 162.6 cm
[2019-04-24 20:58] LABS: BASOPHILS 0.1 % (0-2); EOSINOPHILS 0.3 % (0-7); HEMATOCRIT 23.3 % (36.0-48.0); HEMOGLOBIN 7.7 g/dL (12-16); LYMPHOCYTES 20.7 % (15-50); MCH 27.8 pg (26.0-34.0); MCV 84.1 fL (80.0-100.0); MEAN PLATELET VOLUME 9.6 fL (7.4-10.4); MONOCYTES 7.2 % (2-11); NEUTROPHILS 70.7 % (40-80); PLATELET COUNT 231 10x3/uL (130-400); RBC 2.77 10x6/uL (4.00-5.40); RDW 14.1 % (11.5-14.5); WBC 17.3 10x3/uL (4.8-10.8)
[2019-04-24 21:14] LABS: INR 1.49 (0.85-1.17); PROTIME 17.4 SECONDS (11.6-15.0)
[2019-04-24 21:15] LABS: APTT 44.8 SECONDS (22.8-39.4)
[2019-04-24 21:18] VITALS: BP 132/68
[2019-04-24 21:40] LABS: ALBUMIN 2.4 g/dL (3.4-5.0); ALKALINE PHOSPHATASE 135 U/L (46-116); ALT (SGPT) 25 U/L (10-68); BILIRUBIN - TOTAL 0.52 mg/dL (0.2-1.3); CALC OSMOLALITY 250 mosm/kg (275-300); CARBON DIOXIDE 24.1 mmol/L (21.0-32.0); CHLORIDE - SERUM 92 mmol/L (98-107); CKMB 22.6 U/L (0.0-3.6); CREATININE - SERUM 1.2 mg/dL (0.6-1.3); GLUCOSE 179 mg/dL (74-106); MAGNESIUM - SERUM 1.6 mg/dL (1.8-2.4); POTASSIUM - SERUM 4.6 mmol/L (3.5-5.1); PROTEIN - SERUM 6.5 g/dL (6.4-8.2); SODIUM 121 mmol/L (136-145); THYROID STIMULATING HORMONE 1.89 uIU/mL (0.36-3.74); UREA NITROGEN 21 mg/dL (7-18); eGFR NON AFRICAN AMERICAN 48 mL/min (90-120)
[2019-04-24 21:43] LABS: CREATINE KINASE 3103 UL (21-215)
[2019-04-24 21:48] LABS: TROPONIN-I 0.401 ng/mL (0.000-0.060)
== END 2019-04-24 21:18 | disposition other institution (70) ==
LOC: D.ER 19:47
PROVIDERS: Family Medicine
DX: I63.9 Cerebral infarction, unspecified (principal)

== ENCOUNTER → 2020-05-04 09:39 | Outpatient (CLI) | payer MEDICAID ==
[2019-04-24 19:49] VITALS: BMI 43.3
== END | disposition home or self-care (01) ==
LOC: D.MRI 09:39
PROVIDERS: ATTEND Orthopaedic Surgery
DX: M25.512 Pain in left shoulder (principal)

== ENCOUNTER 2020-06-01 12:50 | Emergency (ER) | payer MEDICAID ==
[~2020-06-01] VITALS: Ht 162.6 cm; Wt 120.5 kg
[2020-06-01 13:21] VITALS: Ht 162.6 cm; Wt 120.5 kg
[2020-06-01] MEDS ORDERED: COREG12.5 MG PO (13:28)
[2020-06-01] MEDS ORDERED: BUPROPION HCL75 MG PO (13:29)
[2020-06-01] MEDS ORDERED: LASIX20 MG PO (13:30)
[2020-06-01] MEDS ORDERED: ZOLOFT25 MG PO (13:32)
[2020-06-01 14:07] LABS: BASOPHILS 0.2 % (0-2); EOSINOPHILS 1.6 % (0-7); HEMATOCRIT 40.3 % (36.0-48.0); HEMOGLOBIN 12.4 g/dL (12-16); LYMPHOCYTES 29.8 % (15-50); MCH 27.4 pg (26.0-34.0); MCHC 30.8 g/dL (31.0-37.0); MEAN PLATELET VOLUME 9.8 fL (7.4-10.4); MONOCYTES 4.5 % (2-11); NEUTROPHILS 62.9 % (40-80); RBC 4.53 10x6/uL (4.00-5.40); RDW 13.6 % (11.5-14.5); WBC 16.8 10x3/uL (4.8-10.8)
[2020-06-01 14:16] LABS: APTT 29.4 SECONDS (22.8-39.4); CALC OSMOLALITY 269 mosm/kg (275-300); CARBON DIOXIDE 25.9 mmol/L (21.0-32.0); CHLORIDE - SERUM 98 mmol/L (98-107); CREATININE - SERUM 1.2 mg/dL (0.6-1.3); GLUCOSE 120 mg/dL (74-106); INR 0.94 (0.85-1.17); POTASSIUM - SERUM 4.7 mmol/L (3.5-5.1); PROTIME 12.5 SECONDS (11.6-15.0); SODIUM 130 mmol/L (136-145); UREA NITROGEN 34 mg/dL (7-18); eGFR NON AFRICAN AMERICAN 48 mL/min (90-120)
[2020-06-01 14:32] LABS: ALBUMIN 3.3 g/dL (3.4-5.0); ALKALINE PHOSPHATASE 129 U/L (30-120); ALT (SGPT) 24 U/L (10-68); BILIRUBIN - TOTAL 0.28 mg/dL (0.2-1.3); CKMB 1.5 U/L (0.0-3.6); CREATINE KINASE 66 UL (21-215); MAGNESIUM - SERUM 1.9 mg/dL (1.8-2.4); PLATELET COUNT 305 10x3/uL (130-400); PROTEIN - SERUM 7.1 g/dL (6.4-8.2); THYROID STIMULATING HORMONE 1.55 uIU/mL (0.36-3.74); TROPONIN-I < 0.017 ng/mL (0.000-0.060)
[2020-06-01 16:18] LABS: BILIRUBIN NEGATIVE (NEGATIVE); KETONE NEGATIVE (NEGATIVE); NITRITE POSITIVE (NEGATIVE); UROBILINOGEN NORMAL mg/dL (< 2)
[2020-06-01 16:19] LABS: EPITHELIAL CELLS 0-5 /hpf (0-5); WHITE CELLS - URINE 25-50 HPF (0-4)
[2020-06-01 16:20] LABS: BACTERIA MANY /HPF (NONE SEEN)
[2020-06-01] MEDS ORDERED: KEFLEX500 MG PO (16:39)
[2020-06-01] MEDS ORDERED: MACROBID100 MG PO (16:39)
[2020-06-01 18:21] VITALS: BP 136/69
== END 2020-06-01 18:21 | disposition home or self-care (01) ==
LOC: D.ER 12:50
PROVIDERS: Family Medicine
DX: N39.0 Urinary tract infection, site not specified (principal); R44.1 Visual hallucinations; R26.81 Unsteadiness on feet; Z86.73 Personal history of transient ischemic attack (TIA), and cerebral infarction without residual deficits; E11.40 Type 2 diabetes mellitus with diabetic neuropathy, unspecified; I10 Essential (primary) hypertension; Z79.4 Long term (current) use of insulin

== ENCOUNTER 2020-12-07 12:45 | Outpatient (CLI) | payer OTHER, MEDICAID ==
[2020-07-09 06:22] VITALS: BMI 45.7
[~2020-12-07 12:45] MED LIST changes: +ASPIRIN325 MG PO; +BUPROPION HCL75 MG PO; +COREG12.5 MG PO; +HYDROCODONE-AC1 EAC2 PO; +KEFLEX500 MG PO; +LASIX20 MG PO; +MACROBID100 MG PO; +ZOLOFT25 MG PO
== END 2020-12-07 23:59 | disposition home or self-care (01) ==
LOC: D.MAMMO 12:45
PROVIDERS: ATTEND General Practice
DX: Z12.31 Encounter for screening mammogram for malignant neoplasm of breast (principal)